=== PATIENT | female | born 1965 | race Caucasian/White ===

== ENCOUNTER 2018-01-24 18:27 | Emergency (ER) | payer OTHER ==
[~2018-01-24] VITALS: Ht 162.6 cm; Wt 76.2 kg
[2018-01-24 18:35] VITALS: Ht 162.6 cm; Wt 76.2 kg
[2018-01-24 19:45] VITALS: BP 148/70
== END 2018-01-24 19:45 | disposition home or self-care (01) ==
LOC: ED 18:27
DX: D63.8 Anemia in other chronic diseases classified elsewhere (principal)